=== PATIENT | female | born 1965 | race African-American/Black ===

== ENCOUNTER 2017-01-22 15:04 | Emergency (ER) | payer BC ==
[~2017-01-22] VITALS: Ht 157.5 cm; Wt 80.0 kg
[~2017-01-22 15:04] MED LIST: ALPR-138 PO; ATOR20TA PO; CLIN1CAP5 PO; EPIP0.3I IM; GABA300C3 PO; HYDR10SO PO; LISI10TA PO; METF500 PO; NAPR-576 PO; NOVOLOGP2 SQ
[2017-01-22 15:06] VITALS: BP 171/92; PULSE 101; RESP 18; TEMP 98.8; O2SAT 100
[2017-01-22] MEDS ORDERED: NOVOLOGP2 SQ (16:05)
[2017-01-22] MEDS ORDERED: HYDR-3583 PO (16:05)
[2017-01-22] MEDS ORDERED: METF500T PO (16:05)
[2017-01-22] MEDS ORDERED: ATOR20TA15 PO (16:05)
[2017-01-22] MEDS ORDERED: BUPR100CR PO (16:05)
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
--- NOTE | 2017-01-22 17:15 | RADRPT ---
EXAM DATE/TIME: 01/22/2017 17:09 [facility] COMPARISON: No previous studies available for comparison. INDICATIONS : Patient fell and twisted knee. MEDICAL HISTORY : Left knee fracture as a child. SURGICAL HISTORY : None. ENCOUNTER: Initial ACUITY: 3 days PAIN SCORE: 7/10 LOCATION: Left medial Knee. FINDINGS: Four view examination of the left knee demonstrates no evidence of fracture or dislocation. Bony min eralization is normal. The articular surfaces are intact. The suprapatellar soft tissues have a nor mal configuration. CONCLUSION: Unremarkable examination of the left knee. Radha Palacios MD on January 22, 2017 at 17:13 Board Certified Radiologist. This report was verified electronically.
[2017-01-22] MEDS ORDERED: IBUP800T23 PO ×2 (17:27→17:50)
== END 2017-01-22 17:57 | disposition home or self-care (01) ==
LOC: NEPK 15:04
DX: S89.92XA Unspecified injury of left lower leg, initial encounter (principal); E11.9 Type 2 diabetes mellitus without complications; I10 Essential (primary) hypertension; E07.9 Disorder of thyroid, unspecified; E78.00 Pure hypercholesterolemia, unspecified; F17.200 Nicotine dependence, unspecified, uncomplicated; W20.8XXA Other cause of strike by thrown, projected or falling object, initial encounter; W50.0XXA Accidental hit or strike by another person, initial encounter; Z79.4 Long term (current) use of insulin; Z86.59 Personal history of other mental and behavioral disorders; Z86.79 Personal history of other diseases of the circulatory system; Z87.19 Personal history of other diseases of the digestive system; Z87.39 Personal history of other diseases of the musculoskeletal system and connective tissue; Z86.69 Personal history of other diseases of the nervous system and sense organs
CPT/HCPCS: 73564; 99283; E0113

== ENCOUNTER 2017-04-17 12:45 | Emergency (ER) | payer BC ==
[~2017-04-17] VITALS: Ht 170.2 cm; Wt 80.5 kg
[~2017-04-17 12:45] MED LIST changes: -ALPR-138 PO; -ATOR20TA PO; +ATOR20TA15 PO; +BUPR100CR PO; -CLIN1CAP5 PO; -EPIP0.3I IM; -GABA300C3 PO; +HYDR-3583 PO; -HYDR10SO PO; +IBUP1TAB7 PO; -LISI10TA PO; -METF500 PO; +METF500T PO; -NAPR-576 PO
[2017-04-17 12:46] VITALS: BP 178/90; PULSE 108; RESP 20; TEMP 98.5; O2SAT 100
--- NOTE | 2017-04-17 13:39 | PD ---
HPI Chief Complaint: Musculoskeletal Complaint Time Seen by Provider: 13:23 Travel History International Travel<30 days: No Contact w/Intl Traveler<30days: No Traveled to known affect area: No History of Present Illness HPI This is a 52-year-old female who presents to the emergency department with 1 week of swelling of her left knee, constant, moderate severity, worse with standing and walking and even hurting her feet. She has pain mostly on the inner aspect of her knee. She did fall 1 week ago and she thinks this exacerbated her pain but she's been having chronic knee pain for 3 months ever since December when she was diagnosed with a sprained knee. She denies any fevers or chills. PFSH Past Medical History Arthritis: No Asthma: No Autoimmune Disease: No Blood Disorders: No Anxiety: Yes Depression: Yes Heart Rhythm Problems: No Cancer: No Cardiovascular Problems: Yes High Cholesterol: Yes Chemotherapy: No Chest Pain: No Congestive Heart Failure: No COPD: No Cerebrovascular Accident: No Diabetes: Yes Patient Takes Glucophage: Yes Diminished Hearing: No Endocrine: Yes Gastrointestinal Disorders: Yes GERD: Yes Glaucoma: No Genitourinary: No Headaches: Yes Hepatitis: No Hiatal Hernia: Yes Hypertension: Yes Immune Disorder: No Implanted Vascular Access Dvce: Yes Kidney Stones: No Musculoskeletal: Yes Psychiatric: Yes Reproductive: Yes (HYSTERECTOMY) Respiratory: No Immunizations Current: Yes Migraines: Yes Myocardial Infarction: No Radiation Therapy: No Renal Failure: No Seizures: No Sleep Apnea: No Thyroid Disease: Yes Tetanus Vaccination: Unknown Influenza Vaccination: No PNEUMOCCOCAL Vaccine (Year): 1 ?: Not Menopausal: Yes : 4 Para: 3 : 1 Tubal Ligation: Yes Past Surgical History Abdominal Surgery: Yes (HYSTERECTOMY-3 SECTIONS) Body Medical Devices: X-RAY SHAPE HAND CHIP LEFT BREAST Cardiac Surgery: No Section: Yes (X 3) Cholecystectomy: Yes Ear Surgery: No Endocrine Surgery: No Eye Surgery: No Genitourinary Surgery: No Gynecologic Surgery: Yes (CSECTIONS/TUBAL/HYSTERECTOMY) Hysterectomy: Yes Oral Surgery: No Pacemaker: No Thoracic Surgery: No Other Surgery: Yes Social History Alcohol Use: No Tobacco Use: Yes (/2 PK) Substance Use: No Allergies-Medications (Allergen,Severity, Reaction): Coded Allergies: codeine (Unverified Allergy, Severe, SKIN PEELS, 04/17/17) diatrizoate meglumine (Unverified Allergy, Severe, UNKNOWN, 04/17/17) PT STS THEY TOLD HER SUCH AFTER ONE OF HER SURG. gadobenic acid (Unverified Allergy, Severe, UNKNOWN, 04/17/17) PT STS THEY TOLD HER SUCH AFTER ONE OF HER SURG. gadodiamide (Unverified Allergy, Severe, UNKNOWN, 04/17/17) PT STS THEY TOLD HER SUCH AFTER ONE OF HER SURG. gadoteridol (Unverified Allergy, Severe, UNKNOWN, 04/17/17) PT STS THEY TOLD HER SUCH AFTER ONE OF HER SURG. iodine (Unverified Allergy, Severe, NAUSEA/VOMITING, 04/17/17) iodixanol (Unverified Allergy, Severe, UNKNOWN, 04/17/17) PT STS THEY TOLD HER SUCH AFTER ONE OF HER SURG. iohexol (Unverified Allergy, Severe, UNKNOWN, 04/17/17) PT STS THEY TOLD HER SUCH AFTER ONE OF HER SURG. lovastatin (Unverified Allergy, Severe, rash, 04/17/17) metronidazole (Unverified Allergy, Severe, ITCHING, 04/17/17) penicillin G (Unverified Allergy, Severe, skin peels, 04/17/17) potassium iodide (Unverified Allergy, Severe, NAUSEA/VOMITING, 04/17/17) povidone-iodine (Unverified Allergy, Severe, NAUSEA/VOMITING, 04/17/17) sodium iodide (Unverified Allergy, Severe, NAUSEA/VOMITING, 04/17/17) sodium iodide (Unverified Allergy, Severe, NAUSEA/VOMITING, 04/17/17) Reported Meds & Prescriptions Reported Meds & Active Scripts Active Reported Atorvastatin (Atorvastatin Calcium) 20 Mg Tab 20 Mg PO HS Novolog Inj (Insulin Aspart) 1,000 Unit/10 Ml Vial 25 Units SQ BID Metformin (Metformin HCl) 500 Mg Tab 500 Mg PO BIDPC With meals Wellbutrin SR 12 HR (Bupropion HCl) 100 Mg Tab 100 Mg PO Q12HR Review of Systems General / Constitutional: No: Fever, Chills Gastrointestinal: No: Nausea, Vomiting Physical Exam Narrative GENERAL: Well-appearing, no acute distress, nontoxic SKIN: Warm and dry. HEAD: Atraumatic. Normocephalic. ENT: No nasal bleeding or discharge. Moist mucous membranes MUSCULOSKELETAL: Mild effusion of the left knee with painless flexion and extension at the knee, some warmth compared to the right knee. Some tenderness on the medial aspect of the left proximal tibia. Vascular: Left lower extremity is well perfused with normal capillary refill. NEUROLOGICAL: Awake and alert. No obvious cranial nerve deficits. Motor grossly within normal limits. Normal speech. PSYCHIATRIC: Appropriate mood and affect; insight and judgment normal. Data Data Last Documented VS Vital Signs Date Time Temp Pulse Resp B/P (MAP) Pulse Ox O2 Delivery O2 Flow Rate FiO2 04/17/17 12:46 98.5 108 20 178/90 (119) 100 Room Air MDM Medical Decision Making Medical Screen Exam Complete: Yes Emergency Medical Condition: Yes Differential Diagnosis Knee sprain, osteoarthritis, gout, septic arthritis, pseudogout Narrative Course This is a 52-year-old female who presents to the emergency department with acute on chronic left knee pain. She does have a mild effusion in the left knee is warmer than the right. She has a normal neurovascular exam. She had an x-ray in December which was reassuring. She's been ambulating on the knee since a fall 1 week ago. I don't think another x-ray would benefit her. I think she requires referral to orthopedics as she may have underlying osteoarthritis or a ligamentous injury. She was advised to Reji wrap, ice and elevate the knee and she was given a referral. At this time I don't think she is septic arthritis that she is afebrile and she has painless range of motion of the knee. I did Advise her of the signs and symptoms of septic arthritis and she will return if she worsens. Diagnosis Primary Impression: Arthritis of knee, left Referrals: [facility] Patient Instructions: General Instructions Additional Instructions: If you develop fever, chills, severe pain in your knee or inability to walk return to the emergency room. Ice, wrap and elevate your knee and follow-up with an orthopedic doctor as soon as possible. Med/Other Pt SpecificInfo: No Change to Meds Disposition: 01 DISCHARGE HOME Condition: Stable Jeanne Morales MD Apr 17, 2017 13:39
== END 2017-04-17 13:45 | disposition home or self-care (01) ==
LOC: NEPK 12:45
DX: M17.12 Unilateral primary osteoarthritis, left knee (principal); F41.9 Anxiety disorder, unspecified; F32.9 Major depressive disorder, single episode, unspecified; E78.00 Pure hypercholesterolemia, unspecified; E11.9 Type 2 diabetes mellitus without complications; K21.9 Gastro-esophageal reflux disease without esophagitis; I10 Essential (primary) hypertension; E07.9 Disorder of thyroid, unspecified; F17.200 Nicotine dependence, unspecified, uncomplicated
CPT/HCPCS: 99282